=== PATIENT | male | born 1995 | race Caucasian/White ===

== ENCOUNTER 2021-11-27 16:49 | Emergency (ER) | payer SELFPAY ==
[~2021-11-27] VITALS: Ht 162.6 cm; Wt 68.9 kg
[2021-11-27 19:06] VITALS: BP 138/82
--- NOTE | 2021-11-27 22:00 | NUR ---
SEEN AND EXAMINED BY ALYSE
[2021-11-27] MEDS ORDERED: ACETAMINOPHEN EXTRA STRENGTH 500 MG TAB PO ONE (23:15)
[2021-11-27] MEDS ORDERED: LID5T TP (23:24)
[2021-11-27] MEDS ORDERED: ACET-10509 PO (23:24)
[2021-11-28] MEDS ORDERED: ACETAMINOPHEN EXTRA STRENGTH 500 MG TAB ONE (00:27)
[2021-11-28 00:30] VITALS: BP 122/78
--- NOTE | 2021-11-28 00:30 | NUR ---
Patient discharged with v/s stable. Written and verbal after care instructions given and explained. Patient alert, oriented and verbalized understanding of instructions. Ambulatory with steady gait. All questions addressed prior to discharge. ID band removed. Patient advised to follow up with PMD. Rx of TYLENOL, LIDODERM given. Patient educated on indication of medication including possible reaction and side effects. Opportunity to ask questions provided and answered.
== END 2021-11-28 00:30 | disposition home or self-care (01) ==
LOC: MED 16:49
DX: S43.402A Unspecified sprain of left shoulder joint, initial encounter (principal); J45.909 Unspecified asthma, uncomplicated; G43.909 Migraine, unspecified, not intractable, without status migrainosus; Z79.899 Other long term (current) drug therapy; V89.2XXA Person injured in unspecified motor-vehicle accident, traffic, initial encounter; Y93.89 Activity, other specified; Y92.89 Other specified places as the place of occurrence of the external cause; Y99.8 Other external cause status
CPT/HCPCS: 70450; 71046; 73020; 99283; 99284